=== PATIENT | male | born 1955 | race Caucasian/White ===

== ENCOUNTER 2020-12-01 06:44 | Outpatient (CLI) | payer OTHER ==
[~2020-12-01] VITALS: Ht 162.6 cm; Wt 59.0 kg
[2020-12-01 07:25] VITALS: BP 142/82
[2020-12-01] MEDS ORDERED: PROAIR DIGIHAL90 MCG INH (07:31)
[2020-12-01] MEDS ORDERED: ASA81BEC PO (07:31)
[2020-12-01] MEDS ORDERED: CILOSTAZOL 100100 MG PO (07:32)
[2020-12-01] MEDS ORDERED: PLAVIX 75 MG TA75 MG PO (07:33)
[2020-12-01] MEDS ORDERED: B-122500 MC1 SUBLING (07:34)
[2020-12-01] MEDS ORDERED: LISINOPRIL20 MG PO (07:35)
[2020-12-01] MEDS ORDERED: IMDUR 30 MG TAB30 M1 PO (07:35)
[2020-12-01 07:36] LABS: HEMATOCRIT 42.9 % (42.0-52.0); HEMOGLOBIN 14.7 gm/dL (14.0-18.0); MCH 37.1 pg (26.0-34.0); MCHC 34.3 g/dL (28.0-37.0); MCV 108.4 fL (80.0-100.0); RBC 3.96 mil/uL (4.50-6.00); RDW 12.9 % (10.5-14.5); WBC 10.1 thou/uL (4.0-11.0)
[2020-12-01] MEDS ORDERED: METOPROLOL TAR100 MG PO (07:36)
[2020-12-01] MEDS ORDERED: NITROSTAT0.4 M1 SUBLING (07:36)
[2020-12-01] MEDS ORDERED: ROSUVASTATIN CA40 MG PO (07:37)
[2020-12-01] MEDS ORDERED: RESTORIL30 MG PO (07:37)
[2020-12-01 07:38] LABS: CALCIUM 9.4 mg/dL (8.5-10.1); POTASSIUM 4.1 mmol/L (3.5-5.1)
[2020-12-01] MEDS ORDERED: TRAZODONE HCL50 MG PO (07:38)
[2020-12-01] MEDS ORDERED: TRELEGY ELLIPT1 EACH INH (07:38)
[2020-12-01] MEDS ORDERED: VITAMIN D325 MC2 PO (07:39)
[2020-12-01] MEDS ORDERED: ZETIA10 MG PO (07:39)
--- NOTE | 2020-12-01 11:55 | EKG ---
[address] [address] ELECTROCARDIOGRAM REPORT Name: JORGE DAWN Room #: PRE [facility]#: [id number] Admission: Attend Phys: Darek Overton MD, Discharge: Date of : 57 Report #: [id number] [facility] Test Date: 2020-12-01 Test Time: 07:23:54 Pat Name: JORGE DAWN Department: Room: Gender: Press Tender Star Signal: [facility] : 1955 Requested By: Darek Overton Order Number: [id number] MD: Kang Cavanaugh Measurements Intervals [place] Rate: 104 P: 69 [place]: 146 QRS: -27 QRSD: 90 T: 48 QT: 337 QTc: 444 Interpretive Statements Sinus tachycardia Borderline left axis deviation Anterior infarct, old Baseline wander in lead(s) V5 No previous ECG available for comparison Electronically Signed On 12-01-2020 11:54:36 CDT by Kang Cavanaugh [email or web address] <ELECTRONICALLY SIGNED> By: Kang Cavanaugh MD, [facility] 12/01/20 1154 0723 2 Kang Cavanaugh MD, FACC /EPI
[2020-12-01 12:00] VITALS: BP 159/87
--- NOTE | 2020-12-01 13:45 | NUR ---
PATIENT ADMITTED TO CCU ROOM 214 FROM EXCEL SPECIALIST POST PROXIMAL LAD STENT AND RIGHT ILLIAC STENT. RIGHT GROIN SITE C/D/I, NO HEMATOMA. PATIENT IS TO BE ON BEDREST 6 HOURS POST. IV FLUIDS INFUSING PER ORDERS. PATIENT ORIENTED TO ROOM AND USE OF CALL LIGHT WELL BEDREST RESTRICTIONS. CARDIAC REHAB AWARE OF PATIENT. PLACED ON MONITOR. SINUS RHYTHM. DENIES ANY PAIN OR CONCERNS AT THIS TIME.
[2020-12-01 16:00] VITALS: BP 148/89
--- NOTE | 2020-12-01 17:34 | CATHLAB ---
[facility] [place] [address] INVASIVE PROCEDURE REPORT Name: JORGE DAWN Room #: 214-P [facility] Teodoro.#: [id number] Admission: 12/01/20 Attend Phys: Darek Overton MD, Discharge: Date of : 57 Report #: [id number] THIS REPORT FOR: cc: [facility] FAMILY PHYSICIAN or PCP Darek Overton MD [facility] ~ APPROVED REPORT Study performed: 12/01/2020 08:51:47 Patient Details Patient Status: Out-Patient Room #: The patient is a 65 year-old male Event Personnel Darek Overton Broke Worker, Meenu Avila RTR Monitor, Yadira Feliciano RTR, Marcellus Restrepo Dexter RN business resiliency manager Performed Art Access - R femoral artery* Left Heart Cath w/or w/o Coronaries [id number] [facility] [address] Place w/wo Plasty Single LAD 208816 Hemostasis with Manual pressure 58051 Initial Mod Sed Same Phys/QHP Gr5y 974332 24951 Mod Sed Same Phys/QHP Ea 892059 Procedure Narrative The Right Groin^ was infiltrated with 1% Lidocaine subcutaneous anesthesia. A PINNACLE 6FR TIF Sheath #[id number] sheath was inserted into the RFA^. Coronary angiography was performed using coronary diagnostic catheters. The right coronary system was accessed and visualized with a JR4 catheter. The left coronary system was accessed and visualized with a JL4 catheter. The left ventricle was accessed and visualized with a PIGTAIL catheter. Left ventriculogram was performed in 30 degree projection. Hemostasis was obtained with manual pressure following sheath removal without any complications. The patient tolerated the procedure well and there were no complications associated with the procedure. There was no hematoma. Intraoperative Conscious Sedation Sedation start time: 9:04 Case end Time: 11:34 Fentanyl 75 mcg Versed 3 mg Sedation, contrast and radiation totals are a combined total of a [facility] [address] INVASIVE PROCEDURE REPORT Name: JORGE DAWN Room #: 214-P [facility]#: [id number] Admission: 12/01/20 Attend Phys: Darek Overton, Discharge: Date of : 57 Report #: [id number] heart cath and a lower extremity runoff. Fluoro Time: 18.17 minutes Dose: DAP 07584.70 cGycm2 2713 mGy Contrast Type and Amount: Omnipaque 180 ml Visipaque 144ml Hemodynamics The aortic pressure is 137/70 mmHg with a mean of 97 mmHg. The left ventricular pressure is 137/7 mmHg with a mean of mmHg. The left ventricular end diastolic pressure is 14 mmHg. PCI Technique Lesion Percutaneous coronary intervention was performed on the proximal left anterior descending artery segment. A LAUNCHER 6FR EBU 3.5 #[id number] Guide Catheter was used to engage the ostium. A Luge Wire .014 x 182CM #[id number] Interventional Guidewire was used to cross the lesion. BALLOON DILATION A Balloon catheter Sprinter OTW 2.25 x 12 #[id number] was inserted and inflated up to 16.00atm for 23seconds. STENT DEPLOYMENT A drug-eluting stent RESOLUTE ALLYSON OTW 2.5 X 18 #[id number] was inserted and inflated up to 15.00atm for 32seconds. POST STENT DEPLOYMENT BALLOON DILATION A Balloon catheter TREK NC OTW 2.75 X 12 #[id number] was inserted and inflated up to 18.00atm for 26seconds. Additional Inflation: 18.00atm for 21seconds. PCI Technique Lesion 2 Percutaneous Coronary Intervention was performed on the External iliac. PCI Technique Lesion 3 Percutaneous Coronary Intervention was performed on the External iliac. Conclusion #1 Successful PTCA stent of subtotal proximal LAD lesion to 0% with placement of a 2.5 x 18 resolute Allyson postdilated 2.75 mm ESTEFANY grade III flow. #2 left main mildly calcified giving rise to LAD and circumflex widely patent. [facility] [address] [place] [address] INVASIVE PROCEDURE REPORT Name: JORGE DAWN Room #: 214-P [facility]#: [id number] Admission: 12/01/20 Attend Phys: Darek Overton, Discharge: Date of : 57 Report #: [id number] #3 a large dominant circumflex system supplying inferior wall heavily calcified first OM branch of 70% moderate distribution the remainder of the circumflex is widely patent filling PDA PORFIRIO left system. Eccentric proximal circumflex lesion of 60% #4 small nondominant right coronary artery #5 normal left jugular size and systolic function EF 55%. Recommendations and plan: Continue aggressive risk factor modification. Dual antiplatelet therapy has been initiated. Patient resolution of chest pain and EKG changes. Transfer to CCU to follow post coronary stent protocol. Addendum patient with significant peripheral vascular disease and calcification. Dr. Chery of interventional radiology did perform intervention high-grade iliofemoral disease. See his dictation. <ELECTRONICALLY SIGNED> By: Darek Overton MD, FACC 12/01/20 1733 [id number] Darek Overton MD, FACC /INF
[2020-12-01 19:42] VITALS: BP 139/90
--- NOTE | 2020-12-02 04:03 | NUR ---
UPON SHIFT REPORT, PT SLEEPING. PT RESTING WITHOUT INTERRUPTION OR OBSERVATION OF PAIN, DISCOMFORT, OR SOB WHILE ON ROOM AIR. PT RESTING IN BED FOR REMAINDER OF SHIFT, FREQUENT REPOSITIONING ENCOURAGED. PT NOTED TO SHIFT INDEPENDENTLY, REPOSITIONING ASSISTANCE REFUSED. PT ENCOURAGED TO NOTIFY STAFF FOR ALL NEEDS, CALL LIGHT WITHIN REACH, BED ALARM ON, BED LOCKED IN LOWEST POSITION, FREQUENT MONITORING WILL CONTINUE.
[2020-12-02 04:48] LABS: CALCIUM 9.2 mg/dL (8.5-10.1); CREATININE 0.9 mg/dL (0.7-1.3); POTASSIUM 4.4 mmol/L (3.5-5.1)
[2020-12-02 05:00] VITALS: BP 135/91
[2020-12-02 05:27] LABS: HEMATOCRIT 38.3 % (42.0-52.0); HEMOGLOBIN 13.2 gm/dL (14.0-18.0); MCH 37.5 pg (26.0-34.0); MCHC 34.5 g/dL (28.0-37.0); MCV 108.8 fL (80.0-100.0); RBC 3.52 mil/uL (4.50-6.00); RDW 12.6 % (10.5-14.5); WBC 8.9 thou/uL (4.0-11.0)
[2020-12-02] MEDS ORDERED: EFFIENT10 MG PO (07:28)
[2020-12-02 07:47] VITALS: BP 139/88
[2020-12-02 09:33] VITALS: BP 139/99
--- NOTE | 2020-12-02 10:23 | NUR ---
TOOK OVER CARE OF PATIENT AT 0700. PATIENT RESTING IN BED. DENIES ANY CHEST PAIN, SOA, HEADACHE, FATIGUE, DIZZINESS OR ANY NEEDS. FALL PRECAUTIONS IN PLACE. CALL LIGHT WITHIN REACH.
--- NOTE | 2020-12-02 10:51 | NUR ---
PATIENT DISCHARGED AT THIS TIME. DISCHARGE EDUCATION PROVIDED TO PATIENT WELL MEDICATION EDUCATION. PATIENT AGREEABLE TO DISCHARGE PLAN AND DOESN'T HAVE ANY QUESTIONS AT THIS TIME. PATIENT TRANSPORTED VIA WHEELCHAIR WITH NURSING STAFF.
== END 2020-12-02 10:57 | disposition home or self-care (01) ==
LOC: 2N 06:44 → CATH 06:44
PROVIDERS: Nuclear Medicine Nuclear Cardiology; ATTEND Internal Medicine Cardiovascular Disease
DX: I25.10 Atherosclerotic heart disease of native coronary artery without angina pectoris (principal); I70.1 Atherosclerosis of renal artery; I70.213 Atherosclerosis of native arteries of extremities with intermittent claudication, bilateral legs; M79.604 Pain in right leg; M79.605 Pain in left leg; I11.0 Hypertensive heart disease with heart failure; I50.9 Heart failure, unspecified; J44.9 Chronic obstructive pulmonary disease, unspecified; I42.9 Cardiomyopathy, unspecified; Z98.890 Other specified postprocedural states; Z79.899 Other long term (current) drug therapy; Z82.49 Family history of ischemic heart disease and other diseases of the circulatory system; Z88.0 Allergy status to penicillin
CPT/HCPCS: 10797